=== PATIENT | female | born 1970 | race Caucasian/White ===

== ENCOUNTER 2021-12-24 19:44 | Emergency (ER) | payer BC, SELFPAY ==
[2021-12-24 19:50] VITALS: BP 138/79; PULSE 90; RESP 16; TEMP 36.7; O2SAT 98
--- NOTE | 2021-12-24 20:00 | DI.CT_ITS ---
Exam(s) CT BRAIN NECK CTA EXAM: CT BRAIN NECK CTA CLINICAL HISTORY: poonam lanza pupil. TECHNIQUE: Imaging Protocol: Axial CT angiography was performed with multi-slice acquisition and mu lti-planar and/or 3D reconstructions. CONTRAST MATERIAL: Intravenous: Omnipaque 350 Contrast volume:structured data in ml Intravenous: Omnipaque 350 Contrast volume:85 mL COMPARISON: No exams were available for comparison FINDINGS: CTA Neck With: The aortic arch anatomy is conventional There is no significant stenosis of the origins of the great vessels off of the aortic arch. ANTERIOR CIRCULATION: Both common carotid arteries ascend with normal luminal diameters. There is no significant stenosis at the level the carotid bifurcations and proximal internal carotid arteries on either side and both internal carotid arteries are demonstrated to be patent in the upper neck and skull base-carotid canals. POSTERIOR CIRCULATION: Both vertebral arteries originate in conventional fashion off of the subclavian arteries. There is n o evidence of significant stenosis of the subclavian arteries (which might result in subclavian steal syndrome). Both vertebral arteries ascend in the foramen transversarium with normal luminal diameters. At the skull base both vertebral arteries contribute to the formation of the basilar artery. CTA Brain With: ANTERIOR CIRCULATION: both internal carotid arteries are patent in the skull base-carotid canal as well as within the gene nous sinuses. supraclinoid aspects are patent. left a1 segment is patent. right a1 segment is hypo plastic. Anterior cerebral arteries are patent. There is no aneurysm at the level of the anterior c ommunicating artery. Both middle cerebral arteries are patent. No intraluminal filling defects. No aneurysms. POSTERIOR CIRCULATION: The basilar artery is patent. Distally the basilar artery gives off patent bilateral superior cerebellar arteries. Above this level the basilar artery terminates as bilateral posterior cerebral arteries. There is a mild focal stenosis in the right posterior cerebral artery approximately 1 cm distal to its origin. No occlusion. The left posterior cerebral artery does not exhibit evidence of stenosis. VISUALIZED BRAIN: There is no evidence of intracranial hemorrhage, mass effect, nor shift of midline structures. There are no extraaxial fluid collections. The ventricles are not enlarged nor shifted. There are no obvious ring enhancing lesions in the brain nor abnormal meningeal enhancement. There is no obvious vascular malformation. IMPRESSION: 1. Patent carotid arteries in the neck. No significant stenosis. Also patent vertebral arteries in the neck. No evidence of significant stenosis, intraluminal thrombus, nor dissection. 2. Patent intracranial arteries although there appears to be a mild stenosis in the P1 segment of the right posterior cerebral artery. 3. No aneurysms evident. RADIATION DOSE DELIVERED: 1,897.13mGy.cm Total DLP 1,897.13mGy.cm Total DLP DATA REPOSITORY: All CT scans at this facility are submitted to the National Radiology Data Registry (NRDR) Dose Index Registry (DIR) with the [employer] (A[employer]). RADIATION OPTIMIZATION: All CT scans at this facility use at least one of these dose optimization te chniques: automated exposure control; mA and/or kV adjustment per patient size (includes targeted exa ms where dose is matched to clinical indication); or iterative reconstruction.
--- NOTE | 2021-12-24 20:00 | RT.EKG_ITS ---
APPROVED REPORT Exam: Resting ECG Reason for Exam: cva Patient Location: E HR:70 bpm ECG Measurements Heart Rate 70 AXIS OK 158 P 4 QRSd 105 QRS 24 QT 392 T 20 QTc 424 Conclusion Sinus rhythm...normal P axis, V-rate 60- 99 Nonspecific T abnormalities, anterior leads...T <-0.10mV, V2-V4
--- NOTE | 2021-12-24 20:07 | DI.RAD_ITS ---
Exam(s) XR CHEST 1V IN DI DEPT EXAM: XR CHEST 1V IN DI DEPT CLINICAL HISTORY: poonam myla pupil. TECHNIQUE: 2D digital imaging was performed. COMPARISON: No exams were available for comparison FINDINGS: Single AP portable view. Heart size is upper normal. The mediastinum is not widened. Lungs are clear. No infiltrates nor obvious pleural effusions. IMPRESSION: No acute pulmonary findings on this single AP portable view of the chest. DATA REPOSITORY: RADIATION DOSE DELIVERED:
[2021-12-24 20:23] LABS: Abs Immature Grans 0.02 10^3/uL (0.0-0.06); Absolute Basophil Count 0.05 10^3/uL (0.0-0.2); Absolute Eosinophil Count 0.27 10^3/uL (0.0-0.7); Absolute Lymphocyte Count 2.65 10^3/uL (1.2-3.4); Absolute Monocyte Count 0.64 10^3/uL (0.1-0.8); Absolute Neutrophil Count 3.12 10^3/uL (1.2-6.7); Basophils % 0.7; HCT 38.9 % (36.0-46.0); HGB 13.2 g/dL (11.2-15.7); Immature Grans % 0.3; Lymphocytes % 39.3; MCH 30.3 pg (27.0-33.0); MCHC 33.9 % (32.0-36.0); MCV 89 fL (80-95); Monocytes % 9.5; Neutrophils % 46.2; Platelet Count 284 10^3/uL (130-400); RBC 4.35 10^6/uL (3.93-5.22); RDW 11.8 % (11.7-14.6); RDW-SD 38.2 fL; WBC 6.75 10^3/uL (4.4-10.8)
[2021-12-24] MEDS: Omnipaque 350 MG/ML 100 ML BTL IJ (20:29)
[2021-12-24 20:32] LABS: ALT 19 U/L (14-59); AST 15 U/L (15-37); Alkaline Phosphatase 82 U/L (46-116); Anion Gap 9.3 mmol/L (3-11); BUN 8 mg/dL (7-18); Bilirubin, Total 0.5 mg/dL (0.2-1.0); CO2 28.7 mmol/L (21.0-32.0); CREATININE 0.8 mg/dL (0.55-1.02); Chloride 105 mmol/L (98-107); Estimated GFR 89.15 (mL/min/1.73m2); Glucose 91 mg/dL (74-106); Potassium 3.8 mmol/L (3.5-5.1); Sodium 143 mmol/L (136-145); Total Protein 7.6 g/dL (6.4-8.2); Troponin I < 50 ng/L (<or=60)
--- NOTE | 2021-12-24 20:48 | DI.VRAD_ITS ---
Addendum created by Andrey Hooper MD on 12/24/2021 9:02:26 PM EDT: THIS REPORT CONTAINS FINDINGS THAT MAY BE CRITICAL TO PATIENT CARE. The findings were verbally communicated via telephone conference with Eliana Martinez at 9:02 PM EDT on 12/24/2021. The findings were acknowledged and understood. Initial report created on 12/24/2021 8:47:16 PM EDT: PROCEDURE INFORMATION: Exam: CTA Head With Contrast, Arteriography Exam date and time: 12/24/2021 8:17 PM Age: 50 years old Clinical indication: Stroke-like symptoms; Visual disturbance TECHNIQUE: Imaging protocol: Computed tomographic angiography of the head with contrast. Exam focused on the arteries. 3D rendering (Not supervised by radiologist): MIP and/or 3D reconstructed images were created by the technologist. Radiation optimization: All CT scans at this facility use at least one of these dose optimization techniques: automated exposure control; mA and/or kV adjustment per patient size (includes targeted exams where dose is matched to clinical indication); or iterative reconstruction. Contrast material: 350; Contrast volume: 100 ml; Contrast route: INTRAVENOUS (IV); COMPARISON: No relevant prior studies available. FINDINGS: ANTERIOR CIRCULATION: Right internal carotid artery: Intracranial segment is patent with no significant stenosis. No aneurysm. Right middle cerebral artery: No occlusion or significant stenosis. No aneurysm. 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 No aneurysm. Left internal carotid artery: Intracranial segment is patent with no significant stenosis. No aneurysm. Left middle cerebral artery: No occlusion or significant stenosis. No aneurysm. Left anterior cerebral artery: No occlusion or significant stenosis. No aneurysm. POSTERIOR CIRCULATION: Right vertebral artery: No occlusion or significant stenosis. No aneurysm. Left vertebral artery: No occlusion or significant stenosis. No aneurysm. Basilar artery: No occlusion or significant stenosis. No aneurysm. Right posterior cerebral artery: No occlusion or significant stenosis. No aneurysm. Left posterior cerebral artery: No occlusion or significant stenosis. No aneurysm. Brain: No intracranial mass, acute transcortical infarction or recent hemorrhage detected. Cerebral ventricles: No midline shift or hydrocephalus. Mastoid air cells: Grossly clear bilaterally. Paranasal sinuses: Grossly clear throughout. Bones/joints: No acute fracture. Soft tissues: Unremarkable. 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 No large vessel stenosis or occlusion detected involving the remaining major branches of the anterior or posterior intracranial circulation. PROCEDURE INFORMATION: Exam: CTA Neck With Contrast Exam date and time: 12/24/2021 8:17 PM Age: 50 years old Clinical indication: Stroke-like symptoms; Visual disturbance TECHNIQUE: Imaging protocol: Computed tomographic angiography of the neck with contrast. 3D rendering (Not supervised by radiologist): MIP and/or 3D reconstructed images were created by the technologist. Radiation optimization: All CT scans at this facility use at least one of these dose optimization techniques: automated exposure control; mA and/or kV adjustment per patient size (includes targeted exams where dose is matched to clinical indication); or iterative reconstruction. Contrast material: 350; Contrast volume: 100 ml; Contrast route: INTRAVENOUS (IV); COMPARISON: No relevant prior studies available. FINDINGS: Right common carotid artery: No stenosis. No dissection or occlusion. Right internal carotid artery: No stenosis of the extracranial segment. No dissection or occlusion. Right external carotid artery: No occlusion or stenosis of the origin. Left common carotid artery: No stenosis. No dissection or occlusion. Left internal carotid artery: No stenosis of the extracranial segment. No dissection or occlusion. Left external carotid artery: No occlusion or stenosis of the origin. Right vertebral artery: No stenosis. No dissection or occlusion. Left vertebral artery: No stenosis. No dissection or occlusion. Soft tissues: Normal. No significant soft tissue swelling. Bones/joints: No acute fracture. IMPRESSION: No evidence of 50% or greater stenosis involving the cervical segments of the right or left internal carotid arteries by NASCET criteria. REFERENCES: NASCET CRITERIA. The degree of stenosis in the cervical segment of the internal carotid artery is based on NASCET criteria. Normal is no stenosis. Mild is less than 50% stenosis. Moderate is 50-69% stenosis. Severe is 70% to 99% stenosis. Total occlusion is no detectable patent lumen. Dictated and Authenticated by: Andrey Hooper MD. Ordering:SOULEYMANE Monroy MD
--- NOTE | 2021-12-24 22:18 | ED.GENADUL_ITS ---
Discharge Plan Disposition Patient Disposition: HOME Condition: Stable Discharge Details Clinical Impression: Dilated pupil Primary Care Provider: [facility] ED Provider: Eliana Martinez Home Meds and New Rx's Prescriptions: Continued aspirin 81 mg Tablet,Delayed Release (Dr/Ec) 81 mg PO DAILY Discharge Instructions Additional Instructions: recheck with your assistant produce manager on Monday return earlier should your symptoms persist or worsen, should resolve/ improve within 12 hours Discharge Data Discharge Date/Time-TO BE ENTERED AT DEPARTURE: 12/24/21 22:28 Medical Decision Making patient symptoms are resolving Neurology was consulted at [facility] and suspect medication reaction as patient symptoms are resolving and she has negative imaging studies and a nonfocal neurological exam, her vision is improving She is referred to ophthalmology tomorrow for reassessment Patient does endorse placing a scopolamine patch last evening which neurology thought may be a reason for her symptoms Patient discharged home in stable condition with stable vitals, return precautions discussed with patient expressed understanding HPI General Date/Time Provider Initiated Documentation: 12/24/21 20:04 . HPI Narrative: 58-year-old female presents with report of dilated left pupil. When she awoke from a nap she noticed that her pupil was quite dilated and not responsive to light. 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 When she awoke at 5 she noticeda dilated pupil. She denies headache, vision abnormalities, strength or sensation change, or any additional complaints at this time. Denies speech, strength, or sensation change. Related Data Home Medications Medication Instructions Recorded Confirmed aspirin 81 mg tablet,delayed 81 mg PO DAILY 12/24/21 12/24/21 release Allergies Allergy/AdvReac Type Severity Reaction Status Date / Time acetaminophen Allergy Unverified 12/24/21 19:56 [From Darvocet-N] propoxyphene Allergy Unverified 12/24/21 19:56 [From Darvocet-N] Sulfa (Sulfonamide Allergy Unverified 12/24/21 19:56 Antibiotics) General Stated Complaint: EyeProblem SEBASTIAN: 2 Review of Systems All systems reviewed & are unremarkable except as noted in HPI and below PFSH All Active Problems (Updated 12/24/21 @ 22:18 by LAMINE Menezes) Dilated pupil (Acute) Social History Smoking/Tobacco Use Status: Never Smoking risk assessment performed?: Yes Alcohol Intake: current Alcohol Intake frequency: holidays/special occasions only Substance use type: does not use Do you feel safe at home: Yes Do you feel safe in your relationship?: Yes Exam Const General: cooperative, comfortable and no acute distress HENMT Head: normal to inspection Throat: uvula midline Eyes Other: Dilated left pupil Minimally reactive, extraocular muscles intact Resp Effort & Inspection: normal respiratory effort Auscultation: clear to auscultation bilaterally Cardio Rate: regular rate Rhythm: regular rhythm Neuro General: patient alert and patient oriented x3 Cranial Nerves: CN's II-XI intact bilaterally and tongue midline Cognition: normal cognition Speech: speech normal Gait: normal gait Motor: strength 5/5 throughout and no pronator drift Sensory Exam: no sensory deficits noted Course Vital Signs Vital signs: Vital Signs Temperature 36.7 C 12/24/21 19:50 Pulse 90 12/24/21 19:50 Respiratory Rate 16 12/24/21 19:50 Blood Pressure 138/79 12/24/21 19:50 Pulse Oximetry 98 12/24/21 19:50 Temperature 36.7 C 12/24/21 19:50 Temperature Source Oral 12/24/21 19:50 Pulse 90 12/24/21 19:50 Respiratory Rate 16 12/24/21 19:50 Respiratory Effort 12/24/21 19:53 Blood Pressure 138/79 12/24/21 19:50 Blood Pressure Position Sitting 12/24/21 19:50 Pulse Oximetry 98 12/24/21 19:50 Oxygen Delivery Method Room Air 12/24/21 19:50 Oxygen Flow Rate 0 12/24/21 19:50 Pain Level 0 12/24/21 19:50 Lab/Test Results Lab/Test Results: Laboratory Tests Range/Units 12/24/21 12/24/21 20:09 20:09 WBC (4.4-10.8) 10^3/uL 6.75 RBC (3.93-5.22) 10^6/uL 4.35 Hgb (11.2-15.7) g/dL 13.2 Hct (36.0-46.0) % 38.9 MCV (80-95) fL 89 MCH (27.0-33.0) pg 30.3 MCHC (32.0-36.0) % 33.9 RDW (11.7-14.6) % 11.8 Plt Count (130-400) 10^3/uL 284 MPV (8.0-11.0) fL 9.0 Immature Gran % 0.3 Neutrophils % 46.2 Lymphocytes % 39.3 Monocytes % 9.5 Eosinophils % 4.0 Basophils % 0.7 Nucleated RBC % (0.0-0.3) % 0.0 Absolute Neutrophils (1.2-6.7) 10^3/uL 3.12 Absolute Lymphocytes (1.2-3.4) 10^3/uL 2.65 Absolute Monocytes (0.1-0.8) 10^3/uL 0.64 Absolute Eosinophils (0.0-0.7) 10^3/uL 0.27 Absolute Basophils (0.0-0.2) 10^3/uL 0.05 Sodium (136-145) mmol/L 143 Potassium (3.5-5.1) mmol/L 3.8 Chloride (98-107) mmol/L 105 Carbon Dioxide (21.0-32.0) mmol/L 28.7 Anion Gap (3-11) mmol/L 9.3 BUN (7-18) mg/dL 8 Creatinine (0.55-1.02) mg/dL 0.8 Est GFR (CKD-EPI 2020) (mL/min/1.73m2) 89.15 Glucose (74-106) mg/dL 91 Calcium (8.5-10.1) mg/dL 9.0 Total Bilirubin (0.2-1.0) mg/dL 0.5 AST (15-37) U/L 15 ALT (14-59) U/L 19 Alkaline Phosphatase (46-116) U/L 82 Troponin I (<or=60) ng/L < 50 Total Protein (6.4-8.2) g/dL 7.6 Albumin (3.4-5.0) g/dL 4.0
[2021-12-24 22:20] VITALS: BP 130/82; PULSE 71; RESP 21; O2SAT 100
== END 2021-12-24 22:28 | disposition home or self-care (01) ==
PROVIDERS: Emergency Provider Physician Assistant
DX: H57.04 Mydriasis (principal); Z79.82 Long term (current) use of aspirin
CPT/HCPCS: 70496; 70498; 80053; 93005; 99284; 71045; 84484; 85025; 93010; J3490